=== PATIENT | female | born 1985 | race Hispanic/Latino ===

== ENCOUNTER 2023-10-17 07:15 | Day surgery (SDC) | payer OTHER, SELFPAY ==
[2023-10-16 08:40] VITALS: BMI 36.2
[2023-10-17] VITALS (10 sets, daily range): BP systolic 99–135; BP diastolic 55–87; PULSE 66–100; RESP 15–20; TEMP 36.4–37; O2SAT 94–100; BMI 36.0
--- NOTE | 2023-10-17 | DI.RAD.S_ITS ---
PROCEDURE: XR LUMBAR SPINE 2-3V INDICATIONS: L5-S1 MICRODISCECTOMY TECHNIQUE: 2 intraoperative low resolution fluoroscopic spot films were obtained COMPARISON: None. FINDINGS: Low resolution fluoroscopic spot films show tubular instrumentation posterior to the L5-S1 disc space IMPRESSION: Fluoroscopic guidance Approved by: Rocco Mejia M.D. on 10/17/2023 at 11:30
[2023-10-17] MEDS: SCOPOLAMINE 1 PATCH TOP (07:53)
[2023-10-17] MEDS: LACTATED RINGERS 1,000 ML 42 ML IV (07:53)
--- NOTE | 2023-10-17 08:39 | PM.PREOP ---
Pre-operative Note Interval Note History & Physical reviewed/Exam performed by Physician: Yes Changes to H&P: No
[2023-10-17] MEDS: CEFAZOLIN 2 GM/100 ML PREMIX 100 ML IV (09:10)
[2023-10-17] MEDS: ACETAMINOPHEN IV 1,000 MG/100 ML VIAL 400 MG IV (09:15)
--- NOTE | 2023-10-17 09:25 | SUR.OPER ---
Prone on spine table, head in foam head support, padded chest and pelvic supports, gel pad at knees, lower legs supported by pillows; nipples, genitalia and toes free of pressure, arms secured on foam padded arm boards at <90 degrees abduction. Tape over blanket at thigh secured to table.
[2023-10-17] MEDS: BUPIVACAINE 0.25% (PF) 30 ML, EPINEPHrine 0.15 MG INJ (09:31)
--- NOTE | 2023-10-17 09:59 | PM.OP.1 ---
Operative Date/Time/Diagnoses Date of procedure: 10/17/23 Time of procedure: 08:40 Pre-op diagnosis: 1. L5-S1 disc herniation with radiculopathy Post-op diagnosis: same Procedure & Clinicians Procedure: 1. L5-S1 left microdiscectomy 2. Utizliation of microsurgical technique and operating microscope Same procedure as scheduled: Yes Indications: Patient has been having chronic back pain and worsening lumbar radiculopathy. Patient was found to have a large L5-S1 left-sided paramedian disc extrusion causing significant left S1 nerve root compression correlating with her symptoms. Patient failed multiple conservative management with worsening pain weakness and numbness in her lower extremity. Patient has been having difficulty performing activity of daily living. After discussing risks benefits of treatment options, patient elected proceed with surgery. Surgeon: Jordon Petty Steam Presser: Yola Patton Click Yes if Unassisted: No Anesthesia Type: General Operative Notes Closure Type: primary Specimen(s): none sent Estimated Blood Loss (mL): 5 Blood products transfused: none Procedure in detail: Patient was seen in the preoperative area. Risks and benefits of the surgery was discussed with the patient. Informed consent was obtained from the patient and placed in the chart. Surgical site was marked. Patient was taken to the operative room. General anesthesia was administered. Prophylactic antibiotic was given to the patient less than 30 min before the incision was made. Patient was placed into a prone position on the Gibson table. Patient's back was then prepped and draped in the sterile fashion. Time-out was performed at this time. Using AP and lateral C-arm imaging the interval between L5-S1 was identified and marked on patient's back. A 1 inch incision 1 in from midline was made on the left side. The fascia was incised in line with skin incision. Globus MARS retractors was placed inside the incision and docked onto the L5 lamina. Using microsurgical technique and operating microscope, a L5 laminotomy was performed using a Kerrison rongeur. Liagamentum flavum was resected at the site of the laminotomy. The disc space at L5-S1 was identified. Microdiscectomy was performed by incising the annulus with #11 blade. Microcurettes and pituitary was used to removed herniated disc fragments of disc from the epidural space. There were multiple extruded disc fragments in the epidural space, which was fully decompressed after the microdiskectomy was completed. After the microdiskectomy was completed, the area medial lateral superior and inferior to the area of the microdiskectomy was inspected and explored using a micro curette. No other impinging structure was identified. The wound was then irrigated with sterile normal saline. 40 mg Depo-Medrol was placed into the epidural space. The deep fascia was closed with 1-0 Vicryl. The subcutaneous tissue was closed with 2-0 Vicryl. The skin was closed with 4-0 Monocryl. Patient tolerated the procedure well. There were no complications. Patient was transferred recovery room in stable condition. Complications: none Post-operative Condition: stable Disposition: PACU Plan for aftercare: Discharge to home
[2023-10-17] MEDS: ALBUTEROL/IPRATROPIUM 3 ML AMPUL INH (10:25)
[2023-10-17] MEDS: OXYCODONE IR 5 MG TABLET PO ×2 (10:52→11:18)
[2023-10-17] MEDS: ONDANSETRON 4 MG/2 ML INJ IV (10:54)
== END 2023-10-17 12:20 | disposition home or self-care (01) ==
LOC: OR 07:17 → AC 07:17
PROVIDERS: PCP Obstetrics & Gynecology; Referring Provider Orthopaedic Surgery Orthopaedic Surgery of the Spine; Visit Provider Orthopaedic Surgery Orthopaedic Surgery of the Spine
PROC: (CPT 63030; principal; 2023-10-17 08:45)
DX: M51.26 Other intervertebral disc displacement, lumbar region (principal); M54.16 Radiculopathy, lumbar region
CPT/HCPCS: 63030; 72100; 76000; 81025; J0136; J0171; J0690; J1100; J1170; J1885; J2250; J2405; J2704; J2919; J3010; J3490